=== PATIENT | male | born 1985 | race Caucasian/White ===

== ENCOUNTER 2018-05-13 06:51 | Emergency (ER) | payer OTHER ==
--- NOTE | 2018-05-13 07:43 | EDM.PDOC ---
ED HPI GENERAL MEDICAL PROBLEM - General Chief Complaint: Genitourinary Problem Stated Complaint: SHARP PAIN IN GROIN Time Seen by Provider: 05/13/18 07:16 Source of Information: Reports: Patient, RN Notes Reviewed History Limitations: Reports: No Limitations - History of Present Illness INITIAL COMMENTS - FREE TEXT/NARRATIVE: The patient states that he has been experiencing occasional right inguinal stabbing pain over the past 2 weeks or so. Yesterday, while standing, the pain was most severe. The pain lasted about 1 minute. He had recurrent pain yesterday and last night. He has not found any modifiers, such as change in position. The patient reports a slower stream when he urinates, and he has a known history of BPH, treated with Flomax. His last dose was about 2 days ago. He confirms that he does not take it regularly. No other urinary symptoms, however, such as dysuria, urinary frequency, or urgency. No flank or suprapubic pain. No recent fever. The patient reports vomiting and diarrhea night, 05/09/2018, but he states that he felt fine Sunday morning, and has not had any other symptoms since. The patient's PCP is Dr. Lenny Mayfield. Right Groin Pain Score (Numeric/FACES): 2 - Related Data Allergies Allergy/AdvReac Type Severity Reaction Status Date / Time No Known Allergies Allergy Verified 05/13/18 07:05 Home Meds: Home Meds Tamsulosin HCl [Flomax] 0.4 mg PO DAILY 05/13/18 [History] Past Medical History HEENT History: Reports: Impaired Vision Other HEENT History: wears eyeglasses. Genitourinary History: Reports: BPH - Infectious Disease History Infectious Disease History: Reports: Chicken Pox Social & Family History - Tobacco Use Smoking Status *Q: Never Smoker Second Hand Smoke Exposure: No - Caffeine Use Caffeine Use: Reports: None - Alcohol Use Alcohol Use History: No - Recreational Drug Use Recreational Drug Use: No - Living Situation & Occupation Living situation: Reports: , with Spouse, with Family (3 kids) Occupation: Employed (Sales) ED ROS GENERAL - Review of Systems Review Of Systems: ROS reveals no pertinent complaints other than HPI. ED EXAM, GENERAL - Physical Exam Exam: See Below Exam Limited By: No Limitations General Appearance: Alert, WD/WN, No Apparent Distress Eye Exam: Bilateral Eye: EOMI, Normal Inspection Ears: Normal External Exam, Hearing Grossly Normal Nose: Normal Inspection Throat/Mouth: Normal Inspection, Normal Lips, Normal Voice, No Airway Compromise Head: Atraumatic, Normocephalic Neck: Normal Inspection, Full Range of Motion Respiratory/Chest: No Respiratory Distress, Lungs Clear, Normal Breath Sounds, No Accessory Muscle Use Cardiovascular: Normal Peripheral Pulses, Regular Rate, Rhythm, No Edema, No Gallop, No JVD, No Murmur, No Rub Peripheral Pulses: 4+: Radial (L), Radial (R) GI/Abdominal: Normal Bowel Sounds, Soft, Non-Tender, No Organomegaly, No Distention, No Abnormal Bruit, No Mass (Male) Exam: No Hernia (including right inguinal area), Normal Inspection Rectal (Males) Exam: Deferred Back Exam: Normal Inspection, Full Range of Motion, NT Extremities: Normal Inspection, Normal Range of Motion, No Pedal Edema, Normal Capillary Refill Neurological: Alert, Oriented, Normal Cognition, No Motor/Sensory Deficits Psychiatric: Normal Affect Skin Exam: Warm, Dry, Intact, Normal Color, No Rash Course - Vital Signs Last Recorded V/S: Last Vital Signs Temp 36.7 C 05/13/18 07:00 Pulse 71 05/13/18 09:00 Resp 16 05/13/18 09:00 BP 114/75 05/13/18 09:00 Pulse Ox 99 05/13/18 09:00 - Orders/Labs/Meds Labs: Laboratory Tests 05/13/18 Range/Units 07:40 Urine Color Yellow (Yellow) Urine Appearance Clear (Clear) Urine pH 6.0 (5.0-8.0) Ur Specific [place] > or = 1.030 (1.005-1.030) Urine Protein Negative (Negative) Urine Glucose (UA) Negative (Negative) Urine Ketones Negative (Negative) Urine Occult Blood Negative (Negative) Urine Nitrite Negative (Negative) Urine Bilirubin Negative (Negative) Urine Urobilinogen 0.2 (0.2-1.0) Ur Leukocyte Esterase Negative (Negative) Urine RBC Not seen (0-5) /hpf Urine WBC 0-5 (0-5) /hpf Ur Epithelial Cells Not seen (0-5) /hpf Urine Bacteria Not seen (FEW) /hpf Urine Mucus Few (FEW) /hpf - Re-Assessments/Exams Free Text/Narrative Re-Assessment/Exam: 05/13/18 07:40 The patient is reporting intermittent right inguinal pain, although he is pain- free at this time, and there is no tenderness to palpation. There is no suggestion of an incarcerated hernia, however, it is very possible that the patient has a nonincarcerated inguinal hernia. For today's purposes, I want to make sure that his symptoms are not related to a UTI or urinary retention. The patient will provide a urine sample by clean catch, and we will then obtain a post-void bladder scan. If his urine looks good and there is no urinary retention, I will refer the patient to a surgeon for evaluation for an inguinal hernia. 05/13/18 07:55 Notified by Sue ROCHA that the patient's post-void bladder scan was zero. 05/13/18 08:51 Test results discussed with the patient. The patient's urinalysis is completely normal. I will refer the patient to Dr. Diallo, for further evaluation. Departure - Departure Time of Disposition: 08:51 Disposition: Home, Self-Care 01 Condition: Good Clinical Impression: Right inguinal pain - Discharge Information *PRESCRIPTION DRUG MONITORING PROGRAM REVIEWED*: Not Applicable *COPY OF PRESCRIPTION DRUG MONITORING REPORT IN PATIENT KATRIN: Not Applicable Referrals: Lenny Mayfield MD [Primary Care Provider] - Phuong Diallo MD [Physician] - Forms: ED Department Discharge Additional Instructions: You were seen in the emergency room for intermittent right groin over the past 2 weeks. Workup in the ER included a urinalysis and a post-void bladder scan. Your urinalysis was completely normal - you do not have a urinary tract infection - and your post-void bladder scan showed complete emptying of your bladder - you do not have urinary retention. The cause of your right groin pain is not entirely clear, but could be due to a non-incarcerated inguinal hernia. Follow-up with the surgeon Dr. Phuong Diallo for further evaluation. If any other problems, please do not hesitate to return to the ER.
== END 2018-05-13 09:00 | disposition home or self-care (01) ==
LOC: JD.ED 06:51
DX: R10.31 Right lower quadrant pain (principal); N40.0 Benign prostatic hyperplasia without lower urinary tract symptoms; Z79.899 Other long term (current) drug therapy
CPT/HCPCS: 51798; 81001; 99283-25